=== PATIENT | male | born 1970 | race Hispanic/Latino ===

== ENCOUNTER 2017-08-18 05:58 | Emergency (ER) | payer MEDICAID ==
[2017-08-18 05:58] VITALS: BMI 21.2
[2017-08-18 06:09] VITALS: BP 139/80; PULSE 62; TEMP 97.5; O2SAT 99
[2017-08-18 06:16] VITALS: RESP 16
--- NOTE | 2017-08-18 06:39 | ED PDOC ---
Lower Extremity Pain/Injury Time Seen by Provider: 08/18/17 06:21 Chief Complaint (Nursing): Lower Extremity Problem/Injury Chief Complaint (Provider): Lower Extremity Problem/Injury History Per: Patient History/Exam Limitations: no limitations Onset/Duration Of Symptoms: Days (2) Current Symptoms Are (Timing): Still Present Additional Complaint(s): 47 years old undomiciled male with history of substance abuse presents to the ED for evaluation of bilateral foot pain onset 2 days. Patient reports he has been walking extensively and developed blisters to the plantar surface of his feet. He states he has difficulty ambulating. Patient denies any fever or chills. PMD: non provided Past Medical History Reviewed: Historical Data, Nursing Documentation, Vital Signs Vital Signs: Last Vital Signs Temp 97.5 F L 08/18/17 06:14 Pulse 62 08/18/17 06:14 Resp 16 08/18/17 06:14 BP 139/80 08/18/17 06:14 Pulse Ox 99 08/18/17 06:14 - Medical History PMH: Anemia, Hepatitis (C), HIV Other PMH: Left femur surgery - Surgical History Surgical History: Appendectomy - Family History Family History: States: Unknown Family Hx - Social History Current smoker - smoking cessation education provided: Yes Drugs: Cocaine, Other (Heroin) - Immunization History Hx Tetanus Toxoid Vaccination: No Hx Influenza Vaccination: No Hx Pneumococcal Vaccination: No - Home Medications Home Medications: Ambulatory Orders Medication Instructions Recorded Clotrimazole 1% Cream [Lotrimin 1% 15 applic EXT BID #1 tube 08/18/17 CREAM] Naproxen [Naprosyn] 500 mg PO Q12H #20 tab 08/18/17 - Allergies Allergies/Adverse Reactions: Allergies Allergy/AdvReac Type Severity Reaction Status Date / Time No Known Allergies Allergy Verified 08/19/17 00:49 Review of Systems ROS Statement: Except As Marked, All Systems Reviewed And Found Negative Constitutional: Negative for: Fever, Chills Musculoskeletal: Positive for: Foot Pain (Bilateral pain to the plantar surface) Physical Exam - Reviewed Nursing Documentation Reviewed: Yes Vital Signs Reviewed: Yes - Physical Exam Appears: Positive for: No Acute Distress Head Exam: Positive for: ATRAUMATIC, NORMOCEPHALIC Pulses-Dorsalis Pedis (L): 2+ Pulses-Dorsalis Pedis (R): 2+ Extremity: Positive for: Tenderness (To both left and right feet), Other (7 cm blister to the right foot and 6 cm blister to the left foot. No erythema or warmth) Neurologic/Psych: Positive for: Alert, Oriented - ECG O2 Sat by Pulse Oximetry: 99 (RA) Pulse Ox Interpretation: Normal Medical Decision Making Medical Decision Making: Time: 624 Initial Impression: 47 years old male with plantar blister. Initial Plan: --Podiatry Consultation Time: 699 Patient is signed out to Dr. Camarillo pending podiatry evaluation. Scribe Attestation: Documented by Tayla Villalta, acting as a scribe for Esau Nagel MD. Provider Scribe Attestation: All medical record entries made by the Scribe were at my direction and personally dictated by me. I have reviewed the chart and agree that the record accurately reflects my personal performance of the history, physical exam, medical decision making, and the department course for this patient. I have also personally directed, reviewed, and agree with the discharge instructions and disposition. Disposition - Clinical Impression Clinical Impression: Blister of foot - Disposition Referrals: Podiatry Clinic [Outside] Disposition: Transfer of Care Disposition Time: 07:00 Condition: FAIR Prescriptions: Clotrimazole 1% Cream [Lotrimin 1% CREAM] 15 applic EXT BID #1 tube Naproxen [Naprosyn] 500 mg PO Q12H #20 tab Instructions: Blisters Forms: [employer] (Lithuanian) Patient Signed Over To: Jaspal Camarillo
--- NOTE | 2017-08-18 08:00 | ED PDOC ---
- ECG O2 Sat by Pulse Oximetry: 99 (RA) Disposition - Clinical Impression Clinical Impression: Blister of foot - POA Present On Arrival: None - Disposition Referrals: Podiatry Clinic [Outside] Disposition: Routine/Home Disposition Time: 07:54 Condition: FAIR Prescriptions: Clotrimazole 1% Cream [Lotrimin 1% CREAM] 15 applic EXT BID #1 tube Naproxen [Naprosyn] 500 mg PO Q12H #20 tab Instructions: Blisters Forms: [facility] [employer] (Slovak)
--- NOTE | 2017-08-18 08:05 | CP.PCM.CON ---
History of Present Illness - History of Present Illness History of Present Illness: Podiatry Consult Note- Dr. Tamayo 47 y.o homeless male with PMH of AIDS and hepatitis seen and evaluated for bilateral foot pain. Patient reports severe pain to the ball of his foot. Rates the pain 10/10 and describes the pain as a throbbing pain. Worse with walking. Denies nausea, fever, shortness of breath, chest pains or chills. No other pedal complaints PMH: AIDS, hepatitis ALL: NKDA MEDS: none FH: noncontributory SH: smoker 25+ years 1/2 ppd, reports current crack and heroin use, reports socially drinks Past Patient History - Infectious Disease Hx of Infectious Diseases: None - Past Social History Drugs: Cocaine, Other (Heroin) - HEMATOLOGICAL/ONCOLOGICAL Hx Anemia: Yes Hx Human Immunodeficiency Virus (HIV): Yes - PSYCHIATRIC Hx Substance Use: Yes (HEROIN , COCAINE) - SURGICAL HISTORY Hx Appendectomy: Yes - ANESTHESIA Hx Anesthesia: Yes Hx Anesthesia Reactions: No Meds Home Medications: Home Medication List Medication Instructions Recorded Confirmed Type Clotrimazole 1% Cream [Lotrimin 1% 15 applic EXT BID #1 tube 08/18/17 Rx CREAM] Naproxen [Naprosyn] 500 mg PO Q12H #20 tab 08/18/17 Rx Allergies/Adverse Reactions: Allergies Allergy/AdvReac Type Severity Reaction Status Date / Time No Known Allergies Allergy Verified 08/02/17 04:55 Physical Exam - Constitutional Appears: Well, Non-toxic, No Acute Distress - Extremities Exam Extremities exam: Negative for: calf tenderness Additional comments: VASC: DP and PT 2/4 bilaterally, CFT < 3 seconds x 10 digits, temperature gradient WNL, no edema noted to the LE ORTHO: severe pain with palpation to the plantar forefoot, cavus foot type NEURO: gross and protective sensation intact DERM: Multipled macerated callus/blister clusters noted to the plantar forefoot along sub met 2-5 of left foot, macerated callus noted to the sub met 4 measuring approximately 2 x 2 cm . Superficial tiny circular abrasions proximal to the callus/blister. No fluid, no fluctanance, no abscess, no purulence, no active drainage, no malodor, no erythema, no streaking, no increase warmth- no clinical signs of infection Minimal diffuse hyperkeratotic lesions noted to the dorsum of the foot consistent with tinea pedis Results - Vital Signs Recent Vital Signs: Last Vital Signs Temp 97.5 F L 08/18/17 06:14 Pulse 62 08/18/17 06:14 Resp 16 08/18/17 06:14 BP 139/80 08/18/17 06:14 Pulse Ox 99 08/18/17 08:00 Assessment & Plan - Assessment and Plan (Free Text) Assessment: 47 y.o homeless male with PMH of AIDS and hepatitis for bilaterally foot blisters/callus- stable no clinical signs of infection and tinea pedis bilaterally Plan: Patient seen and evaluated Discussed plan in detail with attending Dr. Tamayo Cleansed lesions with alcohol and betadine, with 18 gauge, small opening made to each blisters- no drainage noted from blisters Blisters and superfical abrasions dressed with dsd and kerlix Patient to WBAT in surgical shoe to the heels to offload forefoot Please provide ambulatory device as necessary for gait and balance Patient to follow up in podiatry clinic on Saturday with Dr. Tamayo Patient to change dressing daily as needed Patient given supplies of alcohol pads, dsd, kerlix, and optifoam to change dressing Clotrimazole cream BID to the affected area B/L Thank you for allowing us to participate in patient's care
== END 2017-08-18 08:43 | disposition home or self-care (01) ==
LOC: H.ER 05:58
DX: S90.821A Blister (nonthermal), right foot, initial encounter (principal); S90.822A Blister (nonthermal), left foot, initial encounter; Y92.89 Other specified places as the place of occurrence of the external cause; B20 Human immunodeficiency virus [HIV] disease; D64.9 Anemia, unspecified; F17.210 Nicotine dependence, cigarettes, uncomplicated; Z59.0 Homelessness

== ENCOUNTER 2017-08-22 00:17 | Emergency (ER) | payer MEDICAID ==
[2017-08-22 00:17] VITALS: BMI 21.2
[2017-08-22 00:23] VITALS: RESP 16; TEMP 98
--- NOTE | 2017-08-22 00:59 | ED PDOC ---
HPI: Psych/Substance Abuse Time Seen by Provider: 08/22/17 00:23 Chief Complaint (Nursing): Psychiatric Evaluation Chief Complaint (Provider): Psychiatric Evaluation History Per: Patient History/Exam Limitations: no limitations Current Symptoms Are (Timing): Still Present Suicide/Self Injury Attempted (Context): None Associated Symptoms: Suicidal Thoughts Additional Complaint(s): 47 year old male presents to ED with complaints of suicidal ideation and has a history of polysubstance abuse, malingering disorder, HIV, Hepatitis C, and anemia. Patient has been seen for similar complaints in the past and requests a bed in the ED. Denies having a suicidal plan. Patient was seen by this provider 4 days ago for a blister on his foot. PCP: Doug Templeton Past Medical History Reviewed: Historical Data, Nursing Documentation, Vital Signs Vital Signs: Last Vital Signs Temp 98.0 F 08/22/17 00:20 Pulse 67 08/22/17 00:20 Resp 16 08/22/17 00:20 BP 141/87 08/22/17 00:20 Pulse Ox 100 08/22/17 00:20 - Medical History PMH: Anemia, Hepatitis (C), HIV - Surgical History Surgical History: Appendectomy - Family History Family History: States: Unknown Family Hx - Living Arrangements Living Arrangements: Other (Homeless) - Social History Drugs: Opiates (Heroin) - Immunization History Hx Tetanus Toxoid Vaccination: No Hx Influenza Vaccination: No Hx Pneumococcal Vaccination: No - Home Medications Home Medications: Ambulatory Orders Medication Instructions Recorded Clotrimazole 1% Cream [Lotrimin 1% 15 applic EXT BID #1 tube 08/18/17 CREAM] Naproxen [Naprosyn] 500 mg PO Q12H #20 tab 08/18/17 - Allergies Allergies/Adverse Reactions: Allergies Allergy/AdvReac Type Severity Reaction Status Date / Time No Known Allergies Allergy Verified 08/22/17 00:20 Review of Systems ROS Statement: Except As Marked, All Systems Reviewed And Found Negative Psych: Positive for: Suicidal ideation Physical Exam - Reviewed Nursing Documentation Reviewed: Yes Vital Signs Reviewed: Yes - Physical Exam Appears: Positive for: Non-toxic, No Acute Distress (Poor hygiene) Skin: Positive for: Normal Color, Warm, Dry Eye Exam: Positive for: Normal appearance Cardiovascular/Chest: Positive for: Regular Rate, Rhythm. Negative for: Murmur Respiratory: Positive for: Normal Breath Sounds. Negative for: Respiratory Distress Gastrointestinal/Abdominal: Positive for: Normal Exam, Soft. Negative for: Tenderness Extremity: Positive for: Normal ROM. Negative for: Deformity Neurologic/Psych: Positive for: Alert, Oriented. Negative for: Motor/Sensory Deficits - ECG O2 Sat by Pulse Oximetry: 100 (RA) Pulse Ox Interpretation: Normal Medical Decision Making Medical Decision Makin Initial impression: suicidal ideation in setting of homelessness and substance abuse Initial plan: * UDrug screen * Crisis eval 0110 Patient has been evaluated by crisis and now denies suicidal ideation. Patient states that he wants a "good night's sleep". Patient is deemed stable for discharge as per Dr. Garcia. Dx: substance abuse Condition: Stable Scribe Attestation: Documented by Becca Cruz acting as a scribe for Esau Nagel MD. Scribe Attestation: All medical record entries made by the Scribe were at my direction and personally dictated by me. I have reviewed the chart and agree that the record accurately reflects my personal performance of the history, physical exam, medical decision making, and the department course for this patient. I have also personally directed, reviewed, and agree with the discharge instructions and disposition. Disposition - Clinical Impression Clinical Impression: Substance abuse - Disposition Disposition: Routine/Home Disposition Time: 01:22 Condition: STABLE Instructions: Drug Abuse and Drug Addiction (DC) Forms: [employer] (Cook Islander)
[2017-08-22 06:12] VITALS: BP 115/75; PULSE 56
[2017-08-22 06:36] VITALS: O2SAT 100
== END 2017-08-22 06:53 | disposition home or self-care (01) ==
LOC: H.ER 00:17
DX: R45.851 Suicidal ideations (principal); Z59.0 Homelessness; F19.10 Other psychoactive substance abuse, uncomplicated